=== PATIENT | male | born 1985 | race Caucasian/White ===

== ENCOUNTER 2016-12-12 23:30 | Emergency (ER) | payer SELFPAY ==
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
--- NOTE | 2016-12-13 09:27 | Diagnostic Imaging Report ---
Right hand 3 views Indication: Trauma Comparison: none Findings: There is soft tissue swelling seen along the dorsal metacarpal proximal phalangeal regions. No evidence of an acute fracture. There appears to have been a old fracture of the distal radial shaft. 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 Impression: Soft tissue swelling seen along the dorsal metacarpal and proximal phalangeal regions. No evidence of an acute fracture. Probable old healed fracture of the distal radial shaft. There may have also been a healed nonossifying fibroma in this region. Please correlate with clinical history normal exams. In the setting of trauma, if clinical symptoms persist and there is continued concern for an occult fracture, follow up exams in 5-7 days is suggested.
== END 2016-12-13 01:15 | disposition home or self-care (01) ==
LOC: ER 23:30
DX: S60.221A Contusion of right hand, initial encounter (principal); F17.200 Nicotine dependence, unspecified, uncomplicated; W22.01XA Walked into wall, initial encounter; Y93.89 Activity, other specified; Y92.89 Other specified places as the place of occurrence of the external cause; Y99.8 Other external cause status
CPT/HCPCS: 73120-TC-RT; Z7502

== ENCOUNTER 2017-02-26 16:19 | Inpatient (IN) | payer MEDICAID ==
[2017-02-26] MEDS ORDERED: Thiamine 100 mg/mL 2mL Vial IM STA (17:06)
[2017-02-26] MEDS ORDERED: Thiamine 100 mg/mL 2mL Vial ONE ×2 (17:18→19:41)
[2017-02-26 17:22] LABS: % BASOPHILS 2.1 % (0.0-2.0); % EOSINOPHILS 0.7 % (0.0-5.0); % LYMPHOCYTES 21.8 % (20.0-50.0); % MONOCYTES 5.6 % (2.0-10.0); % NEUTROPHILS 69.8 % (40.0-80.0); BASOPHILE ABSOLUTE 0.1 Th/cumm (0-0.2); HEMATOCRIT 46.6 % (41.0-60); LYMPHOCYTE ABSOLUTE 1.4 Th/cmm (1.5-3.0); MEAN CELL VOLUME 96.5 fl (80-99); MEAN CORPUSCULAR HEMOGLOBIN 33.1 pg (26.0-30.0); MEAN CORPUSCULAR HGB CONC 34.2 pg (28.0-36.0); MEAN PLATELET VOLUME 9.4 fl; MONOCYTE ABSOLUTE 0.4 Th/cmm (0.3-1.0); NEUTROPHILE ABSOLUTE 4.6 Th/cmm (1.8-8.0); PLATELET COUNT 196 Th/cmm (150-400); RED BLOOD COUNT 4.83 Mil/cmm (4.30-5.70); WHITE BLOOD COUNT 6.5 Th/cmm (4.8-10.8)
[2017-02-26] MEDS ORDERED: Multivitamin Tab ONE ×2 (17:38→17:42)
[2017-02-26 17:42] LABS: CHOLESTEROL 149 mg/dL (<200); HDL -HIGH DENSITY LIPOPROTEIN 60 mg/dL (23-92); TRIGLYCERIDES 61 mg/dL (<150)
[2017-02-26 17:44] LABS: ALB/GLOB RATIO 2.2 (1.0-1.8); ALBUMIN 4.8 gm/dL (4.2-5.5); BILIRUBIN,DIRECT 0.23 mg/dL (0.0-0.2); BILIRUBIN,TOTAL 0.9 mg/dL (0.3-1.0)
[2017-02-26] MEDS ORDERED: Multivitamin Inj 10 ML, Thiamine HCL 100 MG, Magnesium Sulfate 2 GM, Folic Acid 1 MG in... IV ONE (17:47)
[2017-02-26 17:50] LABS: URINE MICROSCOPIC INDICATED? YES; URINE SOURCE RANDOM
[2017-02-26 18:05] LABS: URINE BILIRUBIN NEGATIVE (NEGATIVE); URINE BLOOD NEGATIVE (NEGATIVE); URINE GLUCOSE (UA) NEGATIVE (NEGATIVE); URINE KETONE NEGATIVE (NEGATIVE); URINE LEUKOCYTE ESTERASE NEGATIVE (NEGATIVE); URINE NITRATE NEGATIVE (NEGATIVE); URINE PROTEIN NEGATIVE (NEGATIVE); URINE UROBILINOGEN 0.2 E.U./dL (0.2 - 1.0)
[2017-02-26 18:16] LABS: INR 1.05 (0.5-1.4); PROTHROMBIN TIME (TEST) 10.9 SECONDS (9.5-11.5)
[2017-02-26 18:20] LABS: AMPHETAMINE URINE NEGATIVE (NEGATIVE); BARBITURATES URINE NEGATIVE (NEGATIVE); COCAINE METABOLITE QUAL URINE NEGATIVE (NEGATIVE); METHAMPHETAMINES QUAL URINE NEGATIVE (NEGATIVE); OPIATES (MORPHINE) QUAL. URINE NEGATIVE (NEGATIVE); PHENCYCLIDINE (PCP) URINE NEGATIVE (NEGATIVE); TRICYCLICS (TCA) QUAL. URINE NEGATIVE (NEGATIVE)
[2017-02-26 18:21] LABS: BENZODIAZEPINES QUAL URINE POSITIVE (NEGATIVE); CANNABINOID THC NEGATIVE (NEGATIVE); METHADONE URINE NEGATIVE (NEGATIVE); URINE CLARITY CLEAR (CLEAR); URINE COLOR STRAW
[2017-02-26 18:22] LABS: URINE BACTERIA NONE SEEN /hpf (NONE SEEN); URINE EPITHELIAL CELLS NONE SEEN /lpf (FEW); URINE RBC NONE SEEN /hpf (0-5); URINE WBC NONE SEEN /hpf (0-5)
[2017-02-26] MEDS ORDERED: Magnesium Sulfate 1 gm/2 mL 2mL Vial IV ONE (19:41)
[2017-02-26] MEDS ORDERED: Multivitamin Inj 10 mL Vial IV ONE (19:43)
[2017-02-26] MEDS ORDERED: Magnesium Hydroxide (MOM) 30 mL UDC PO PRN (19:57)
[2017-02-26] MEDS: D5-0.9%NS 1,000 ML IV SCH (21:00)
[2017-02-26 21:51] VITALS: BP 124/72
--- NOTE | 2017-02-26 22:13 | ER Physician Documentation ---
DATE OF SERVICE: 02/26/2017 ADDENDUM: HISTORY OF PRESENT ILLNESS: Body surface area is 1.78 square meters. No known allergies. I just got all the results. I was asked to check it on the computer by Daniel, the triage nurse and then all the labs are seen by me on the computer. White count was 6.5, hemoglobin was 16, hematocrit was 46.6, and platelet count 196,000, neutrophils 69.8, lymphocytes 21.8, monocytes 5.6, basophils 21.__. Chemistry showed magnesium of 2. Total bilirubin 0.9, direct bilirubin 0.23, AST is 38, ALT is somewhat elevated to 54, alkaline phosphatase is 58. BNP is less than 5. Total protein is 7, albumin is 4.8, globulin is 2.2, albumin to globulin ratio is 2.2, triglycerides 61, cholesterol is 149, LDL level is 78, HDL is 60. Toxicology report came back. Tylenol level less than 10. Ethyl alcohol level is less than 10. The patient is being admitted to the hospital under the Emergency Room admitting physician. I will call and talk to him once the nurse connects me to whomsoever is on the duty, I will discuss with them. Orders were written and I will speak to the doctor. The entire patient's process was explained to the patient and the patient's mother that the patient will be admitted, we will watch the patient, preventing impending DTs and try to give him some Valium and Ativan as needed or any other drug like Librium along with banana bag, thiamine, multivitamin, and other tests were done. EKG was done, early repolarization was seen. Incomplete right bundle-branch block pattern was seen. Left atrial enlargement was seen and tall peaked T waves were seen. JOB# [id number]
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
[2017-02-27] MEDS: D5-0.9%NS 1,000 ML IV SCH (05:45)
[2017-02-27 06:06] LABS: % BASOPHILS 0.9 % (0.0-2.0); % EOSINOPHILS 1.5 % (0.0-5.0); % LYMPHOCYTES 28.4 % (20.0-50.0); % MONOCYTES 7.9 % (2.0-10.0); % NEUTROPHILS 61.3 % (40.0-80.0); BASOPHILE ABSOLUTE 0.1 Th/cumm (0-0.2); EOSINOPHILE ABSOLUTE 0.1 Th/cmm (0.1-0.4); HEMATOCRIT 41.1 % (41.0-60); HEMOGLOBIN 14.1 gm/dL (12-16); LYMPHOCYTE ABSOLUTE 1.9 Th/cmm (1.5-3.0); MEAN CELL VOLUME 97.4 fl (80-99); MEAN CORPUSCULAR HEMOGLOBIN 33.4 pg (26.0-30.0); MEAN CORPUSCULAR HGB CONC 34.3 pg (28.0-36.0); MONOCYTE ABSOLUTE 0.5 Th/cmm (0.3-1.0); PLATELET COUNT 137 Th/cmm (150-400); RED BLOOD COUNT 4.22 Mil/cmm (4.30-5.70); RED CELL DISTRIBUTION WIDTH 11.6 % (11.5-20.0); WHITE BLOOD COUNT 6.6 Th/cmm (4.8-10.8)
[2017-02-27 06:24] LABS: ALB/GLOB RATIO 2.1 (1.0-1.8); ALBUMIN 4.1 gm/dL (4.2-5.5); ALKALINE PHOSPHATASE 46 U/L (34-104); ANION GAP 6.8 (7.0-16.0); BUN - UREA NITROGEN 9 mg/dL (7-25); CALCIUM SERUM 9.1 mg/dL (8.6-10.3); CARBON DIOXIDE 29.1 mEq/L (21.0-31.0); CHLORIDE 107 mEq/L (98-107); GFR AFRICAN-AMERICAN > 60.0 ml/min (>90); GFR NON AFRICAN-AMERICAN > 60.0 ml/min; GLUCOSE 114 mg/dL (70-105); MAGNESIUM 2.1 mg/dL (1.9-2.7); POTASSIUM SERUM 3.9 mEq/L (3.5-5.1); SGOT 30 U/L (13-39); SGPT/ALT 43 U/L (7-52); SODIUM SERUM 139 mEq/L (136-145); TOTAL PROTEIN,SERUM 6.1 gm/dL (6.0-8.3)
--- NOTE | 2017-02-27 08:09 | Diagnostic Imaging Report ---
CHEST X-RAY: AP view INDICATION: Pneumonia COMPARISON: None FINDINGS: Hyperinflated lungs are noted. There is no focal consolidation or pleural effusions The heart is normal in size. The osseous structures demonstrate no acute abnormalities. IMPRESSION: Hyperinflated lungs. No focal consolidation identified.
--- NOTE | 2017-02-27 08:23 | Consultation ---
DATE OF CONSULTATION: 02/27/2017 PHYSICIAN: ____. OPERATIONS MANAGEMENT PROFESSIONALS: Dr. Najera. TYPE OF THE REPORT: Psychiatric consult. REASON FOR THE CONSULT: Heavy drinking. HISTORY OF PRESENT ILLNESS: The patient is a 31-year-old male who was admitted to the hospital because of withdrawal of alcohol. The patient has been drinking half a pint of vodka everyday and has been drinking 12 pack of beer. The patient also has been smoking marijuana "on and off." He denies any other street drug use. The patient said that he did get treatment and went to rehabilitation program while in the [place] in 2007, but he has not been in any other treatment since then. He was placed on 50 and 72 hours hold in 2012 for depression, but he denies any history of suicidal attempt. Also, denies any history of treatment of depression. The patient currently denies any thoughts of suicide or homicide. He lives with his parents and grandmother who has dementia. PAST PSYCHIATRIC HISTORY: As mentioned above. PAST MEDICAL HISTORY: The patient denies any medical problems. SOCIAL HISTORY: The patient is single, never and has no children. He works as "self-employed". The patient said that the work is somehow stressful for being self-employed. The patient denies any legal issues and he said that he got in the past ticket for drunk in public, but that was cleared from his records long time ago. ALLERGIES: No known allergies. MENTAL STATUS EXAM: The patient appears slightly older than stated age. Anxious. Cooperative. Thought processes is mainly goal directed. The patient denies hallucinations or delusions, and denies any thoughts of suicide or homicide. The patient is alert and oriented to time, place, person, and situation. Intact immediate, recent and remote memories. Fair insight and fair judgment. He seems to be of average intelligence based on his verbal ability. SECONDARY DIAGNOSIS: Alcohol use disorder. TREATMENT PLAN: Continue detoxification. The patient will need rehabilitation when medically stable and medically cleared. Thanks to Dr. Tejeda and we will follow up with you while in [facility]. JOB# [id number]
--- NOTE | 2017-02-27 08:23 | Consultation ---
DATE OF CONSULTATION: 02/27/2017 PHYSICIAN: ____. PHOTONICS ENGINEERING TECHNOLOGIST: Dr. Najera. TYPE OF THE REPORT: Psychiatric consult. REASON FOR THE CONSULT: Heavy drinking. HISTORY OF PRESENT ILLNESS: The patient is a 31-year-old male who was admitted to the hospital because of withdrawal of alcohol. The patient has been drinking half a pint of vodka everyday and has been drinking 12 pack of beer. The patient also has been smoking marijuana "on and off." He denies any other street drug use. The patient said that he did get treatment and went to rehabilitation program while in the [employer] in 2007, but he has not been in any other treatment since then. He was placed on 50 and 72 hours hold in 2012 for depression, but he denies any history of suicidal attempt. Also, denies any history of treatment of depression. The patient currently denies any thoughts of suicide or homicide. He lives with his parents and grandmother who has dementia. PAST PSYCHIATRIC HISTORY: As mentioned above. PAST MEDICAL HISTORY: The patient denies any medical problems. SOCIAL HISTORY: The patient is single, never and has no children. He works as "self-employed". The patient said that the work is somehow stressful for being self-employed. The patient denies any legal issues and he said that he got in the past ticket for drunk in public, but that was cleared from his records long time ago. ALLERGIES: No known allergies. MENTAL STATUS EXAM: The patient appears slightly older than stated age. Anxious. Cooperative. Thought processes is mainly goal directed. The patient denies hallucinations or delusions, and denies any thoughts of suicide or homicide. The patient is alert and oriented to time, place, person, and situation. Intact immediate, recent and remote memories. Fair insight and fair judgment. He seems to be of average intelligence based on his verbal ability. SECONDARY DIAGNOSIS: Alcohol use disorder. TREATMENT PLAN: Continue detoxification. The patient will need rehabilitation when medically stable and medically cleared. Thanks to Dr. Tejeda and we will follow up with you while in [facility]. JOB# [id number]
--- NOTE | 2017-02-27 08:23 | Consultation ---
DATE OF CONSULTATION: 02/27/2017 PHYSICIAN: ____. VIOLENT CRIMES DETECTIVE: Dr. Najera. TYPE OF THE REPORT: Psychiatric consult. REASON FOR THE CONSULT: Heavy drinking. HISTORY OF PRESENT ILLNESS: The patient is a 31-year-old male who was admitted to the hospital because of withdrawal of alcohol. The patient has been drinking half a pint of vodka everyday and has been drinking 12 pack of beer. The patient also has been smoking marijuana "on and off." He denies any other street drug use. The patient said that he did get treatment and went to rehabilitation program while in the [employer] in 2007, but he has not been in any other treatment since then. He was placed on 50 and 72 hours hold in 2012 for depression, but he denies any history of suicidal attempt. Also, denies any history of treatment of depression. The patient currently denies any thoughts of suicide or homicide. He lives with his parents and grandmother who has dementia. PAST PSYCHIATRIC HISTORY: As mentioned above. PAST MEDICAL HISTORY: The patient denies any medical problems. SOCIAL HISTORY: The patient is single, never and has no children. He works as "self-employed". The patient said that the work is somehow stressful for being self-employed. The patient denies any legal issues and he said that he got in the past ticket for drunk in public, but that was cleared from his records long time ago. ALLERGIES: No known allergies. MENTAL STATUS EXAM: The patient appears slightly older than stated age. Anxious. Cooperative. Thought processes is mainly goal directed. The patient denies hallucinations or delusions, and denies any thoughts of suicide or homicide. The patient is alert and oriented to time, place, person, and situation. Intact immediate, recent and remote memories. Fair insight and fair judgment. He seems to be of average intelligence based on his verbal ability. SECONDARY DIAGNOSIS: Alcohol use disorder. TREATMENT PLAN: Continue detoxification. The patient will need rehabilitation when medically stable and medically cleared. Thanks to Dr. Tejeda and we will follow up with you while in [facility]. JOB# [id number]
[2017-02-27] MEDS: Pantoprazole 40 mg EC Tab PO SCH (08:47)
[2017-02-27] MEDS: Multivitamin Tab PO SCH (08:47)
[2017-02-27] MEDS ORDERED: Thiamine 100 mg/mL 2mL Vial IM SCH (09:00)
[2017-02-27] MEDS: D5-0.45NS 1,000 ML IV ONE ×2 (10:28→23:58)
--- NOTE | 2017-02-27 10:35 | History & Physical ---
ADMIT DATE: 02/27/2017 PATIENT IDENTIFICATION: This is a 31-year-old male. CHIEF COMPLAINT: "I was going through detox and I need help." HISTORY OF PRESENT ILLNESS: A 31-year-old discharged to [place], has longstanding history of alcohol addiction, enrolled himself to [facility] for alcohol detox, but unable to make an appointment; recently went to [facility] for alcohol withdrawal. The patient was given few tablets of Librium and discharged this patient home. Unfortunately, the patient ran out with the medication in past, started to have relapse and started to drink alcohol until 02/21/2017 and then he stopped drinking and experiencing symptoms of palpitations, dizziness, sweating, chest pain, as well as feeling like he is going to pass out. He brought himself to the Emergency Room where the patient was seen by ER MD. The patient was evaluated and subsequently admitted to the hospital for alcohol detox. PAST MEDICAL HISTORY: None. MEDICATION AT HOME: Librium. ALLERGIES: None. 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 The patient has smoking cigarette. The patient has chewing tobacco as well as drinking alcohol. Occasional marijuana use. FAMILY MEDICAL HISTORY: Remarkable for colon cancer, hypertension, as well as alcoholism. REVIEW OF SYSTEMS: After the patient was treated overnight with current medications and therapy, patient is feeling better. Denies any chest pain, shortness of breath, palpitation, dizziness, nausea, vomiting, diarrhea, dysuria, hematuria, hematochezia, or melena. No seizure or syncopal episode. PHYSICAL EXAMINATION: GENERAL: Alert, awake, oriented, lying in the bed, without any acute distress. VITAL SIGNS: Temperature 97, pulse 50, respiratory rate , and blood pressure 104/63. HEENT: Normocephalic, atraumatic. Extraocular muscles are intact. Tongue was pink and coated. No oral lesion, no exudate. No sinus tenderness. External auditory canal and tympanic membranes are well visualized. NECK: Supple. No JVD, no hepatojugular reflex. No lymphadenopathy, thyromegaly, or carotid bruit. HEART: Both heart sounds are regular. No S3, no S4, no murmur. CHEST: Lung equal in expansion, no wheezing, no crackles. ABDOMEN: Soft. No guarding, no rigidity. Liver and spleen nonpalpable. No palpable mass. EXTREMITIES: No edema. No cyanosis or clubbing. Pedal edema +2. No calf tenderness noted. NEUROLOGIC: Nonfocal. CLINICAL IMPRESSION: 1. Alcohol withdrawal. 2. Alcohol dependence. 3. Family history of colon cancer and alcoholism. PLAN: The patient is admitted to telemetry unit, IV fluid, Librium, p.r.n. Ativan, psych consult, multivitamin, folic acid, and thiamine. Followup lab and neuro check. Once the patient is stabilized, the patient will be discharged and have outpatient followup with [facility] for detox. Care plan reviewed and discussed with patient. JOB# [id number]
--- NOTE | 2017-02-27 10:35 | History & Physical ---
ADMIT DATE: 02/27/2017 PATIENT IDENTIFICATION: This is a 31-year-old male. CHIEF COMPLAINT: "I was going through detox and I need help." HISTORY OF PRESENT ILLNESS: A 31-year-old discharged to [place], has longstanding history of alcohol addiction, enrolled himself to [facility] for alcohol detox, but unable to make an appointment; recently went to [facility] for alcohol withdrawal. The patient was given few tablets of Librium and discharged this patient home. Unfortunately, the patient ran out with the medication in past, started to have relapse and started to drink alcohol until 02/21/2017 and then he stopped drinking and experiencing symptoms of palpitations, dizziness, sweating, chest pain, as well as feeling like he is going to pass out. He brought himself to the Emergency Room where the patient was seen by ER MD. The patient was evaluated and subsequently admitted to the hospital for alcohol detox. PAST MEDICAL HISTORY: None. MEDICATION AT HOME: Librium. ALLERGIES: None. SOCIAL HISTORY: He currently employed work as [employer]. The patient has smoking cigarette. The patient has chewing tobacco as well as drinking alcohol. Occasional marijuana use. FAMILY MEDICAL HISTORY: Remarkable for colon cancer, hypertension, as well as alcoholism. REVIEW OF SYSTEMS: After the patient was treated overnight with current medications and therapy, patient is feeling better. Denies any chest pain, shortness of breath, palpitation, dizziness, nausea, vomiting, diarrhea, dysuria, hematuria, hematochezia, or melena. No seizure or syncopal episode. PHYSICAL EXAMINATION: GENERAL: Alert, awake, oriented, lying in the bed, without any acute distress. VITAL SIGNS: Temperature 97, pulse 50, respiratory rate , and blood pressure 104/63. HEENT: Normocephalic, atraumatic. Extraocular muscles are intact. Tongue was pink and coated. No oral lesion, no exudate. No sinus tenderness. External auditory canal and tympanic membranes are well visualized. NECK: Supple. No JVD, no hepatojugular reflex. No lymphadenopathy, thyromegaly, or carotid bruit. HEART: Both heart sounds are regular. No S3, no S4, no murmur. CHEST: Lung equal in expansion, no wheezing, no crackles. ABDOMEN: Soft. No guarding, no rigidity. Liver and spleen nonpalpable. No palpable mass. EXTREMITIES: No edema. No cyanosis or clubbing. Pedal edema +2. No calf tenderness noted. NEUROLOGIC: Nonfocal. CLINICAL IMPRESSION: 1. Alcohol withdrawal. 2. Alcohol dependence. 3. Family history of colon cancer and alcoholism. PLAN: The patient is admitted to telemetry unit, IV fluid, Librium, p.r.n. Ativan, psych consult, multivitamin, folic acid, and thiamine. Followup lab and neuro check. Once the patient is stabilized, the patient will be discharged and have outpatient followup with [facility] for detox. Care plan reviewed and discussed with patient. JOB# [id number]
[2017-02-28] MEDS: Pantoprazole 40 mg EC Tab PO SCH (08:20)
[2017-02-28] MEDS: Multivitamin Tab PO SCH (08:20)
[2017-02-28] MEDS ORDERED: Multivitamin w/ Minerals Tab PO SCH (09:00)
--- NOTE | 2017-02-28 16:12 | Progress Notes ---
DATE: 02/28/2017 SUBJECTIVE: Chart reviewed and the patient interviewed. Also discussed the patient's condition with the staff and I reviewed records and labs. The patient's affect is brighter. The patient is less shaky. The patient denies any symptoms or signs of withdrawal and he said that he slept better last night. He also has been cooperative and compliant with taking his medications with no side effects of medications. ASSESSMENT: Primary diagnosis; alcohol use disorder. TREATMENT PLAN: Continue detox. The patient is not suicidal or homicidal, and the patient can be discharged when medically stable. The patient said that he is involved in the process of getting into a rehab program in [place] and continue to try to get there and I encouraged the patient to go there. The patient currently is not suicidal. He can be discharged when medically stable. Also, the patient will go to rehab in [place] and the patient to follow up there. Thanks to Dr. Tejeda and we will follow with you. [facility]# [id number]
--- NOTE | 2017-02-28 16:12 | Progress Notes ---
DATE: 02/28/2017 SUBJECTIVE: Chart reviewed and the patient interviewed. Also discussed the patient's condition with the staff and I reviewed records and labs. The patient's affect is brighter. The patient is less shaky. The patient denies any symptoms or signs of withdrawal and he said that he slept better last night. He also has been cooperative and compliant with taking his medications with no side effects of medications. ASSESSMENT: Primary diagnosis; alcohol use disorder. TREATMENT PLAN: Continue detox. The patient is not suicidal or homicidal, and the patient can be discharged when medically stable. The patient said that he is involved in the process of getting into a rehab program in [place] and continue to try to get there and I encouraged the patient to go there. The patient currently is not suicidal. He can be discharged when medically stable. Also, the patient will go to rehab in [place] and the patient to follow up there. Thanks to Dr. Tejeda and we will follow with you. [facility]# [id number]
--- NOTE | 2017-02-28 19:36 | Discharge Summary ---
DATE OF DISCHARGE: 02/28/2017 PRINCIPAL DIAGNOSES: 1. Alcohol withdrawal causing impending delirium tremens. 2. Alcohol dependence. 3. Psychotic disorder. BRIEF STATEMENT FOR THE REASON FOR ADMISSION: A 31-year-old male with longstanding history of alcohol dependence, presented to Emergency Room for symptoms of palpitation, dizziness, sweating, and noted to have alcohol withdrawal with highly possibilities of impending DT. The patient was advised to be admitted. Please refer to my dictated H and P for further information. HOSPITAL COURSE: The patient was admitted to telemetry unit. The patient was given IV fluid, B12, multivitamin, folic acid, thiamine along with Librium, p.r.n. Ativan was given. Psych consult was requested. The patient was seen by psychiatrist. Recommended to have continuation of same therapy along with outpatient detox. The patient is a discharged [facility] patient, did tell me he has already appointment to see [facility] for alcohol detox. The patient responded fairly well to the therapy and I have discharged him today with outpatient followup with [place] [facility] in [place], next Friday. Meanwhile, the patient will be taking Librium 25 mg 3 times a day 30 pills with no refill has been given. The patient is advised to refrain from alcohol and also advised to take multivitamin, folic acid, and thiamine. The patient has fully understood. The patient is discharged in stable condition. The patient has primary MD who he will see this patient in his office in 1 week as well. JOB# [id number]
--- NOTE | 2017-02-28 19:36 | Discharge Summary ---
DATE OF DISCHARGE: 02/28/2017 PRINCIPAL DIAGNOSES: 1. Alcohol withdrawal causing impending delirium tremens. 2. Alcohol dependence. 3. Psychotic disorder. BRIEF STATEMENT FOR THE REASON FOR ADMISSION: A 31-year-old male with longstanding history of alcohol dependence, presented to Emergency Room for symptoms of palpitation, dizziness, sweating, and noted to have alcohol withdrawal with highly possibilities of impending DT. The patient was advised to be admitted. Please refer to my dictated H and P for further information. HOSPITAL COURSE: The patient was admitted to telemetry unit. The patient was given IV fluid, B12, multivitamin, folic acid, thiamine along with Librium, p.r.n. Ativan was given. Psych consult was requested. The patient was seen by psychiatrist. Recommended to have continuation of same therapy along with outpatient detox. The patient is a discharged [facility] patient, did tell me he has already appointment to see [facility] for alcohol detox. The patient responded fairly well to the therapy and I have discharged him today with outpatient followup with [place] [facility] in [place], next Friday. Meanwhile, the patient will be taking Librium 25 mg 3 times a day 30 pills with no refill has been given. The patient is advised to refrain from alcohol and also advised to take multivitamin, folic acid, and thiamine. The patient has fully understood. The patient is discharged in stable condition. The patient has primary MD who he will see this patient in his office in 1 week as well. JOB# [id number]
== END 2017-02-28 10:00 | disposition home or self-care (01) | DRG 775 ==
LOC: ER 16:19 → TELE 20:06
PROVIDERS: ADMIT Internal Medicine; ATTEND Internal Medicine
PROC: HZ2ZZZZ Detoxification Services for Substance Abuse Treatment (ICD-10-PCS; principal; 2017-02-27)
DX: F10.231 Alcohol dependence with withdrawal delirium (principal); F17.210 Nicotine dependence, cigarettes, uncomplicated; I10 Essential (primary) hypertension; I45.10 Unspecified right bundle-branch block; F41.9 Anxiety disorder, unspecified; R25.1 Tremor, unspecified
CPT/HCPCS: 36415-UA; 71010-TC; 80053-TC; 80061-TC; 80076-TC; 80307; 80320-TC; 80329-TC; 81001-TC; 83735-TC; 83880-TC; 85025-TC; 85610-TC; 86141-TC; 87086-90; 93005; 94760; J2060; J3411; J3475; J3480; J7030; J7042; X6598; Z7610